=== PATIENT | male | born 1940 | race Caucasian/White ===

== ENCOUNTER 2018-06-28 19:37 | Emergency (ER) | payer MEDICARE, BC ==
--- NOTE | 2018-06-28 19:46 | EDM.PDOC ---
ED HPI GENERAL MEDICAL PROBLEM - General Chief Complaint: General Stated Complaint: rib pain from fall Time Seen by Provider: 06/28/18 19:46 Source of Information: Reports: Patient History Limitations: Reports: No Limitations - History of Present Illness INITIAL COMMENTS - FREE TEXT/NARRATIVE: 78-year-old male presents to the ED after reviewing his right anterior chest wall earlier this afternoon. Patient states he was at the [facility]. As he was coming down the stairs he lost his balance tripped and fell on top of one of the guard rails. The for direct blunt trauma to the right anterior mid and lower chest wall. It is very painful to breathe sharp stabbing pain with every breath. He denies any hemoptysis. He is short of breath as he splinting on this side. He did take 1 hydrocodone tablet that he had left at home which did take the edge off the pain and at rest his pain is 1 out of 10. It's with movement that is worse. Is appreciated increased bruising developing just underneath his right breast. It does hurt in his right upper quadrant of the abdomen as well. Is been no nausea or vomiting. He has not eaten since the time of injury. He was proximal be 1530 hrs. today , [place] standard time. Onset: Today Onset Date: 06/28/18 Onset Time: 15:30 Duration: Hour(s): Location: Reports: Chest (Right anterior mid and lower chest wall), Other ( Abrasions to his right knee and contusion to the medial right distal thigh) Quality: Reports: Ache, Sharp, Stabbing Severity: Moderate (severe sharp stabbing pain with every deep breath. At rest pain is 110 with breathing deep it 7 out of 10) Improves with: Reports: Rest Worsens with: Reports: Other (Deep breathing or coughing), Movement Context: Denies: Activity, Exercise, Lifting, Sick Contact, Trauma, Other Associated Symptoms: Reports: No Other Symptoms, Chest Pain, Loss of Appetite, Shortness of Breath. Denies: Confusion, Cough, cough w sputum, Diaphoresis, Fever/Chills, Headaches, Malaise, Nausea/Vomiting, Rash, Seizure, Syncope Treatments RN SECURITY: Reports: Other (see below) (Took 1 hydrocodone tablet that he had left over from a previous visit and has taken the edge off the pain.) Right Abdomen Pain Score (Numeric/FACES): 7 - Related Data Allergies Allergy/AdvReac Type Severity Reaction Status Date / Time No Known Allergies Allergy Verified 11/15/13 07:52 Home Meds: Home Meds Hydrocodone/Acetaminophen [Hydrocodon-Acetaminophn 10-325] 1 - 2 tab PO Q6H PRN 12/07/13 [History] Metoprolol Succinate [Toprol XL 100mg] 100 mg PO DAILY 12/07/13 [History] Omeprazole 20 mg PO DAILY 12/07/13 [History] Simvastatin 0 mg PO DAILY 12/07/13 [History] hydroCHLOROthiazide [Hydrochlorothiazide] 25 mg PO DAILY 12/07/13 [History] Hydrocodone/Acetaminophen [Hydrocodon-Acetaminophen 5-325] 1 each PO Q4H PRN # 24 tablet 06/28/18 [Rx] Lisinopril 0 mg PO DAILY 06/28/18 [History] Past Medical History HEENT History: Reports: Allergic Rhinitis, Sinusitis, Other (See Below) Cardiovascular History: Reports: High Cholesterol, Hypertension Gastrointestinal History: Reports: GERD Genitourinary History: Reports: BPH Musculoskeletal History: Reports: Back Pain, Chronic, Osteoarthritis - Past Surgical History Male Surgical History: Reports: Prostate Biopsy, Other (See Below) (Patient had total prostatectomy with the da Manuel[employer] robot out in [place] 11 years ago. Since then his PSAs have been normal. Surgery left him dribbling urine a good deal and with erectile dysfunction.) Social & Family History - Living Situation & Occupation Living situation: Reports: Single Occupation: Retired ED ROS GENERAL - Review of Systems Review Of Systems: See Below Constitutional: Reports: Decreased Appetite. Denies: Fever, Chills, Malaise, Weakness, Fatigue, Weight Loss HEENT: Reports: Glasses Respiratory: Reports: Shortness of Breath, Pleuritic Chest Pain. Denies: Wheezing, Cough, Sputum (Right anterior chest at site of recent blunt trauma), Hemoptysis Cardiovascular: Reports: Chest Pain, Blood Pressure Problem (See history of present illness), Dyspnea on Exertion. Denies: Claudication, Edema, Lightheadedness ( chronic hypertension), Orthopnea, Palpitations Endocrine: Reports: No Symptoms GI/Abdominal: Reports: Abdominal Pain (Right upper quadrant abdominal pain along the right costal margin.), Constipation (Occasional) : Reports: Urgency, Other (Dribbles urine intermittently since his prostate was removed.) Musculoskeletal: Reports: Joint Pain (These hips low back and neck at times) Skin: Reports: Other (Bruises easily) Neurological: Reports: No Symptoms, Change in Speech Hematologic/Lymphatic: Reports: No Symptoms Immunologic: Reports: No Symptoms ED EXAM, GENERAL - Physical Exam Exam: See Below Exam Limited By: No Limitations General Appearance: Alert, WD/WN, Mild Distress, Other (Sats are 96% on room air ) Eye Exam: Bilateral Eye: Normal Inspection Respiratory/Chest: No Respiratory Distress, Lungs Clear (Splinting respirations on the right side.), Decreased Breath Sounds, Other ( is ecchymoses and swelling just underneath his right breast. This is across rib 5. Pain is from ribs 5678 and 9 anteriorly and laterally. No posterior lateral pain on palpation of his ribs. No left-sided pain or sternal pain. ). No: Rales, Rhonchi (Sounds are diminished to the right lower lung field due to splinting respirations I believe. Also does have some underlying COPD.), Wheezing Cardiovascular: Regular Rate, Rhythm, No Edema, No Gallop, No Murmur, No Rub. No: Normal Peripheral Pulses Peripheral Pulses: 1+: Posterior Tibial (L), Posterior Tibial (R), Dorsalis Pedis (L), Dorsalis Pedis (R) GI/Abdominal: No Organomegaly (Require acid bowel sounds.), Guarding (Right upper quadrant of the abdomen.), Tender (There is tenderness along the right costal margin right upper quadrant of the abdomen on deep palpation in the distribution of the liver.), Abnormal Bowel Sounds. No: Rigid, Rebound ( Guarding no rigidity did ED or rebound) Back Exam: Normal Inspection, Full Range of Motion. No: CVA Tenderness (L), CVA Tenderness (R) Extremities: Other (Patient suffered an abrasion over his right patella in a contusion some ecchymoses along the medial aspect of the right thigh distally) Neurological: Alert, Oriented, CN II-XII Intact, Normal Cognition Psychiatric: Anxious, Other Skin Exam: Warm, Dry (In moderate pain.), Intact, Normal Color, No Rash Course - Vital Signs Last Recorded V/S: Last Vital Signs Temp 36.0 C 06/28/18 19:45 Pulse 62 06/28/18 19:45 Resp 20 06/28/18 19:45 BP 154/105 H 06/28/18 19:45 Pulse Ox 96 06/28/18 19:45 - Orders/Labs/Meds Orders: Active Orders 24 hr Category Date Time Status Chest Abdomen Pelvis wo Cont [CT] Stat Exams 06/28/18 19:51 Taken - Radiology Interpretation Free Text/Narrative:: 78-year-old male presents to the ED for evaluation of blunt force trauma to his right anterior chest wall that occurred at 1530 hrs. today while he was in October and then at [facility]. states she landed hard on a guard rail when he tripped going down stairs. He did not the wind out of him. Subsequent pain is gradually increased in intensity and he can't take a full deep breath. His splinting respirations on the right side. So O2 sats are maintained at 96% on room air. He is reading very shallowly. He has ecchymoses and swelling just underneath his right breast over ribs 5678 and 9 which are exquisitely tender to palpation. This is anteriorly and laterally. Some tenderness right upper quadrant of the abdomen up underneath the right costal margin and rib 10. Therefore going to have CT done of his chest abdomen and pelvis to make sure there is no injury to his liver. Suspect fracture of ribs mid anterior chest. At present his pain is down to 110. This is after taking hydrocodone tablet at home prior to coming to the ED. - Re-Assessments/Exams Free Text/Narrative Re-Assessment/Exam: 06/28/18 20:33 CT chest abdomen pelvis has been completed without any contrast material. CT chest does not reveal any pulmonary contusion. Does reveal evidence of panlobular emphysematous changes. Cardiac silhouette is within normal limits. There is significant moderate atherosclerosis of the entire aorta particularly at the bifurcation. There is no aneurysmal dilatation. Ribs reveal a undisplaced fracture at ribs 9 and [address] of the abdomen shows liver to be homogeneous without any intraductal dilatation. There is no evidence of injury to the liver or spleen or kidneys. Both kidneys show renal cysts of varying proportion. Kidneys are mildly atrophic. Pancreas is mildly atrophic. Stomach is full of food. No blood in the pelvis. Departure - Departure Time of Disposition: 20:35 Disposition: Home, Self-Care 01 Condition: Fair Clinical Impression: Anterior chest wall pain, Abrasion, right lower leg, initial encounter Fracture, ribs Qualifiers: Encounter type: initial encounter Rib fracture type: multiple ribs Fracture type: closed Laterality: right Qualified Code(s): S22.41XA - Multiple fractures of ribs, right side, initial encounter for closed fracture - Discharge Information *PRESCRIPTION DRUG MONITORING PROGRAM REVIEWED*: Not Applicable *COPY OF PRESCRIPTION DRUG MONITORING REPORT IN PATIENT ZION: Not Applicable Prescriptions: Hydrocodone/Acetaminophen [Hydrocodon-Acetaminophen 5-325] 1 each PO Q4H PRN # 24 tablet PRN Reason: Fractured ribs Referrals: Benjy Krishnamurthy MD [Primary Care Provider] - Forms: ED Department Discharge Additional Instructions: Evaluation the emergency room today in regards to fall [place] [employer] today and mandate an. Landed on the guardrail and suffered blunt force trauma to your right anterior chest wall. There is bruising and swelling coming up over ribs 56 and 7. X-rays or CT done of the chest abdomen and pelvis revealed fractures which are undisplaced in ribs 8 and 9. No underlying injury to the lung identified. CT also revealed no injuries to the liver which lives up underneath those ribs. The remainder of the CT of the abdomen and pelvis was essentially normal other than missing prostate gland. You do have a fat filled umbilical hernia which of course you know about. Treatment is Gilbert wrap on for the next 4 or 5 days to provide comfort. May take off to shower. May take hydrocodone tablet 5/325 one or 2 every 4-6 hours as needed for relief of rib pain which will be particularly bad over the next 3-4 days and then start to ease up. That Motrin intermittently may also help relieve the pain. Follow-up with personal care physician if you develop any troubles breathing or any fever chills within the next 10-14 days. SPECT rib pain to slowly improve over next 3- 4 weeks. Activity as tolerated. Abrasions to the right knee need to be daily cleansed and would suggest a small amount of antibiotic topically placed on them until they heal such as bacitracin or Polysporin. Continue all other medications as before. - My Orders Last 24 Hours: My Active Orders 06/28/18 19:51 Chest Abdomen Pelvis wo Cont [CT] Stat - Assessment/Plan Last 24 Hours: My Active Orders 06/28/18 19:51 Chest Abdomen Pelvis wo Cont [CT] Stat
[2018-06-28 19:47] VITALS: BP 154/105
--- NOTE | 2018-06-28 20:54 | CT ---
CT chest Technique: Multiple axial sections through the chest were obtained. Intravenous contrast was not utilized. Comparison: Prior chest CT of 09/08/15. Findings: Atherosclerotic calcification is are seen within the aorta and within the branch vessels. Ascending aorta measures 4.3 cm which is stable. Prominent coronary artery calcification is noted also stable. Several mediastinal lymph nodes are seen which are also felt to be stable and incidental. No axillary adenopathy is seen. No pericardial thickening is seen. Several small subpleural blebs seen within the lung apices. Small nodules are noted within the chest which are stable. No pulmonary contusion is seen. No pleural effusions or pneumothorax is seen. Vertebral body heights are maintained within the thoracic spine. Sternum appears intact on the reconstructed sagittal images. No acute rib fracture is seen. Old fracture is noted within the left ninth rib posteriorly which appears to be healed. Impression: 1. Stable findings which are incidental. Nothing acute is appreciated. Diagnostic code #2 CT abdomen and pelvis Technique: Multiple axial sections were obtained from above the dome of the diaphragm inferiorly through the pubic symphysis. Intravenous and oral contrast not utilized. Comparison: Prior MRI abdomen study of 04/29/[address] upper abdomen exam of 11/15/13. Findings: Numerous cysts are seen within both kidneys. Small hyperdense area is seen within the right kidney measuring 1.1 cm in size and appears to represent small hemorrhagic cyst which is seen on previous exam and appears stable in size. Noncontrast appearance of the liver shows no focal abnormality. Spleen appears within normal limits. Adrenal glands show no nodule. Pancreas is within normal limits. Gallbladder shows no calcified gallstones. Aorta shows atherosclerotic calcification without aneurysm. Atherosclerotic calcification continues into the iliac vessels. No retroperitoneal adenopathy or mesenteric abnormalities are seen. Fat-containing umbilical hernia is seen slightly enlarged from previous study. Diverticuli are seen within the sigmoid colon and descending colon without inflammatory change of diverticulitis. No pelvic mass or adenopathy is seen. No free fluid or inflammatory change is seen within the abdomen or within the pelvis. Appendix not definitely visualized. Bone window settings were reviewed which shows no acute abnormality within the pelvic bones. Vacuum disc phenomena and disc space narrowing noted at L3-L4, L4-L5 and L5-S1. 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 Previous laminectomy noted at L4-L5. Impression: 1. Slightly enlarging umbilical hernia. 2. Numerous cysts within the kidneys as described above which are felt to be incidental. 3. Nothing acute is appreciated on noncontrast CT study of the abdomen and pelvis. 4. Other incidental findings. Diagnostic code #2
== END 2018-06-28 21:06 | disposition home or self-care (01) ==
LOC: JD.ED 19:37
DX: S22.41XA Multiple fractures of ribs, right side, initial encounter for closed fracture (principal); S70.11XA Contusion of right thigh, initial encounter; S80.211A Abrasion, right knee, initial encounter; I10 Essential (primary) hypertension; K21.9 Gastro-esophageal reflux disease without esophagitis; M19.90 Unspecified osteoarthritis, unspecified site; Z79.899 Other long term (current) drug therapy; W10.8XXA Fall (on) (from) other stairs and steps, initial encounter
CPT/HCPCS: 71250; 71250-26; 74176; 74176-26; 99283-25

== ENCOUNTER 2018-09-05 07:30 | Day surgery (SDC) | payer MEDICARE, BC ==
[~2018-09-05 07:30] MED LIST: Cefuroxime 10 MG/ML SYRINGE EYERT SCH; Lidocaine 1% PF 2 ML SDV INJECT SCH; Pilocarpine 4% Ophth Soln 15 ML Bot EYERT SCH
--- NOTE | 2018-09-05 07:55 | PCM.PREANE ---
Preanesthetic Assessment - Anesthesia/Transfusion/Family Hx Anesthesia History: Prior Anesthesia Without Reaction Family History of Anesthesia Reaction: No Transfusion History: No Prior Transfusion(s) - Review of Systems General: No Symptoms Pulmonary: No Symptoms Cardiovascular: No Symptoms Gastrointestinal: No Symptoms Neurological: No Symptoms Other: Reports: None (pt checked BS on sun 151, checks 2-3 times per week [address] this past week) - Physical Assessment NPO Status Date: 09/04/18 NPO Status Time: 21:00 Pulse: 44 O2 Sat by Pulse Oximetry: 94 Respiratory Rate: 16 Blood Pressure: 153/91 Temperature: 97.6 C ASA Class: 2 Mental Status: Alert & Oriented x3 Airway Class: Mallampati = 2 Dentition: Reports: Dentures (upper), Partial (bottom), Implants (bottom) Thyro-Mental Finger Breadths: 2 Mouth Opening Finger Breadths: 3 ROM/Head Extension: Full Lungs: Clear to Auscultation, Normal Respiratory Effort, Decreased Breath Sounds (bilateral) Cardiovascular: Irregular Rhythm - Allergies Allergies/Adverse Reactions: Allergies Allergy/AdvReac Type Severity Reaction Status Date / Time No Known Allergies Allergy Verified 11/15/13 07:52 - Anesthesia Plan Beta Dora: Metoprolol Med Last Dose Date: 09/04/18 Med Last Dose Time: 08:00 - Acknowledgements Anesthesia Type Planned: MAC Pt an Appropriate Candidate for the Planned Anesthesia: Yes Alternatives and Risks of Anesthesia Discussed w Pt/Guardian: Yes Pt/Guardian Understands and Agrees with Anesthesia Plan: Yes PreAnesthesia Questionnaire HEENT History: Reports: Allergic Rhinitis, Cataract, Sinusitis, Other (See Below ) Cardiovascular History: Reports: High Cholesterol, Hypertension Respiratory History: Reports: SOB (SOB with exertion) Gastrointestinal History: Reports: GERD Genitourinary History: Reports: BPH Musculoskeletal History: Reports: Back Pain, Chronic, Osteoarthritis Neurological History: Reports: None Endocrine/Metabolic History: Reports: Diabetes, Type II (pt BS on sun 151) Oncologic (Cancer) History: Reports: Prostate - Past Surgical History HEENT Surgical History: Reports: Tonsillectomy GI Surgical History: Reports: Appendectomy Male Surgical History: Reports: Prostate Biopsy, Other (See Below) (Patient had total prostatectomy with the [employer] robot out in [place] 11 years ago. Since then his PSAs have been normal. Surgery left him dribbling urine a good deal and with erectile dysfunction.) Neurological Surgical History: Reports: Laminectomy - SUBSTANCE USE Smoking Status *Q: Current Every Day Smoker - HOME MEDS Home Medications: Home Meds Allopurinol [Zyloprim] 100 mg PO DAILY 09/04/18 [History] Aspirin [Children's Aspirin] 81 mg PO DAILY 09/04/18 [History] Docusate Sodium [Colace] 100 mg PO DAILY 09/04/18 [History] Empagliflozin/Metformin HCl [Synjardy 12.5-500 mg Tablet] 1 tab PO BID 09/04/18 [History] Glimepiride [Amaryl] 2 mg PO DAILY 09/04/18 [History] Hydrocodone/Acetaminophen [Hydrocodon-Acetaminophen 5-325] 1 tab PO Q6H PRN [History] Irbesartan 300 mg PO DAILY 09/04/18 [History] Metoprolol Succinate 100 mg PO DAILY 09/04/18 [History] Omeprazole 20 mg PO DAILY 09/04/18 [History] Pioglitazone HCl 22.5 mg PO DAILY 09/04/18 [History] Rosuvastatin Calcium 20 mg PO DAILY 09/04/18 [History] Sennosides [Senna] 8.6 mg PO DAILY PRN 09/04/18 [History] - CURRENT (IN HOUSE) MEDS Current Meds: Current Medications Brimonidine Tartrate (Alphagan 0.2% Ophth Soln) 0 ml EYERT ASDIRECTED KARLEY Stop: 09/05/18 18:00 Cefuroxime Sodium (Zinacef) 0 mg EYERT ASDIRECTED KARLEY Stop: 09/05/18 18:00 Lidocaine HCl (Xylocaine-Mpf 1%) 0 ml INJECT ASDIRECTED KARLEY Stop: 09/05/18 18:00 Phenylephrine HCl (Andrade-Synephrine 2.5% Ophth Soln) 0 ml EYERT ASDIRECTED KARLEY Stop: 09/05/18 18:00 Pilocarpine HCl (Pilocar 4% Ophth Soln) 0 ml EYERT ASDIRECTED KARLEY Stop: 09/05/18 18:00 Polymyxin/Trimethoprim Sulfate (Polytrim Ophth Soln) 0 ml EYERT ASDIRECTED KARLEY Stop: 09/05/18 18:00 Tetracaine HCl (Tetracaine 0.5% Steri-Unit Celena) 0 ml EYERT ASDIRECTED KARLEY Stop: 09/05/18 18:00 Tropicamide [facility]) 0 ml EYERT ASDIRECTED KARLEY Stop: 09/05/18 18:00
[2018-09-05] MEDS: Polymyxin B/Trimethoprim 10 ML Bottle EYERT SCH ×3 (08:08→09:26)
[2018-09-05] MEDS: Brimonidine 0.2% Ophth Soln 5 ML Bottle EYERT SCH ×2 (08:12→08:45)
[2018-09-05] MEDS: Phenylephrine 2.5% Ophth Soln 2 ML Bot EYERT SCH ×5 (08:16→09:00)
[2018-09-05] MEDS: Tropicamide 1% Ophth Soln 15 ML Bottle EYERT SCH ×5 (08:21→09:26)
[2018-09-05] MEDS: Tetracaine HCl/PF 0.5% 4 ML Bottle EYERT SCH ×2 (08:55→09:16)
--- NOTE | 2018-09-05 09:27 | PCM48HPAN ---
Post Anesthesia Note - EVALUATION WITHIN 48HRS OF ANESTHETIC Vital Signs in Normal Range: Yes Patient Participated in Evaluation: Yes Respiratory Function Stable: Yes Airway Patent: Yes Cardiovascular Function Stable: Yes Hydration Status Stable: Yes Pain Control Satisfactory: Yes Nausea and Vomiting Control Satisfactory: Yes Mental Status Recovered: Yes Pulse Rate: 44 Resp Rate: 16 Temperature: 97.6 C Blood Pressure: 153/91
[2018-09-05 09:47] VITALS: BP 176/89
== END 2018-09-05 09:40 | disposition home or self-care (01) ==
LOC: JD.SDS 07:30
PROVIDERS: ATTEND Ophthalmology
DX: E11.36 Type 2 diabetes mellitus with diabetic cataract (principal); H25.813 Combined forms of age-related cataract, bilateral; H21.81 Floppy iris syndrome; H21.41 Pupillary membranes, right eye; I10 Essential (primary) hypertension; F17.200 Nicotine dependence, unspecified, uncomplicated; M10.9 Gout, unspecified; H16.223 Keratoconjunctivitis sicca, not specified as Sjogren's, bilateral; H16.103 Unspecified superficial keratitis, bilateral; H02.834 Dermatochalasis of left upper eyelid; H02.831 Dermatochalasis of right upper eyelid; Z79.84 Long term (current) use of oral hypoglycemic drugs; Z79.82 Long term (current) use of aspirin; Z79.899 Other long term (current) drug therapy
CPT/HCPCS: 66982; A9270; J0697; J2001; C1780

== ENCOUNTER 2018-10-03 07:04 | Day surgery (SDC) | payer MEDICARE, BC ==
[2018-10-03] MEDS: Polymyxin B/Trimethoprim 10 ML Bottle EYELF SCH ×4 (07:15→09:06)
[2018-10-03] MEDS: Brimonidine 0.2% Ophth Soln 5 ML Bottle EYELF SCH ×4 (07:20→09:06)
[2018-10-03] MEDS: Phenylephrine 2.5% Ophth Soln 2 ML Bot EYELF SCH ×6 (07:25→08:42)
[2018-10-03] MEDS: Tropicamide 1% Ophth Soln 15 ML Bottle EYELF SCH ×4 (07:30→08:10)
--- NOTE | 2018-10-03 07:47 | PCM.PREANE ---
Preanesthetic Assessment - Procedure Proposed Procedure: left eye extraction cataract with implant - Anesthesia/Transfusion/Family Hx Anesthesia History: Prior Anesthesia Without Reaction Family History of Anesthesia Reaction: No Transfusion History: No Prior Transfusion(s) - Review of Systems General: No Symptoms Pulmonary: Wheezing (inhaler use x2 day, administered to self this AM ) Cardiovascular: No Symptoms, Dyspnea on Exertion Gastrointestinal: No Symptoms Neurological: No Symptoms, Other (gout ) Other: Reports: None, Diabetes - Physical Assessment NPO Status Date: 10/02/18 NPO Status Time: 18:00 O2 Sat by Pulse Oximetry: 93 Respiratory Rate: 20 Vital Signs: Last Vital Signs Temp 36.2 C 10/03/18 07:15 Pulse 86 10/03/18 07:15 Resp 20 10/03/18 07:15 BP 146/84 H 10/03/18 07:15 Pulse Ox 93 L 10/03/18 07:15 Height: 1.78 m Weight: 95.254 kg ASA Class: 2 Mental Status: Alert & Oriented x3 Airway Class: Mallampati = 2 Dentition: Reports: Missing Tooth/Teeth (implant missing left lower ) Thyro-Mental Finger Breadths: 3 Mouth Opening Finger Breadths: 4 ROM/Head Extension: Full Lungs: Clear to Auscultation, Normal Respiratory Effort Cardiovascular: Regular Rate, Regular Rhythm - Lab Values: Laboratory Last Values POC Glucose 153 mg/dL (83-110) H 10/03/18 07:19 - Allergies Allergies/Adverse Reactions: Allergies Allergy/AdvReac Type Severity Reaction Status Date / Time No Known Allergies Allergy Verified 10/02/18 14:50 - Blood Blood Available: No - Anesthesia Plan Beta Dora: Metoprolol Med Last Dose Date: 10/03/18 - Acknowledgements Anesthesia Type Planned: MAC Pt an Appropriate Candidate for the Planned Anesthesia: Yes Alternatives and Risks of Anesthesia Discussed w Pt/Guardian: Yes Pt/Guardian Understands and Agrees with Anesthesia Plan: Yes PreAnesthesia Questionnaire HEENT History: Reports: Allergic Rhinitis, Cataract, Sinusitis, Other (See Below ) Cardiovascular History: Reports: High Cholesterol, Hypertension Respiratory History: Reports: SOB (SOB with exertion) Gastrointestinal History: Reports: GERD Genitourinary History: Reports: BPH Musculoskeletal History: Reports: Back Pain, Chronic, Osteoarthritis Neurological History: Reports: None Endocrine/Metabolic History: Reports: Diabetes, Type II (pt BS on sun 151) Oncologic (Cancer) History: Reports: Prostate - Past Surgical History HEENT Surgical History: Reports: Tonsillectomy GI Surgical History: Reports: Appendectomy Male Surgical History: Reports: Prostate Biopsy, Other (See Below) (Patient had total prostatectomy with the [employer] robot out in [place] 11 years ago. Since then his PSAs have been normal. Surgery left him dribbling urine a good deal and with erectile dysfunction.) Neurological Surgical History: Reports: Laminectomy - HOME MEDS Home Medications: Home Meds Allopurinol [Zyloprim] 100 mg PO DAILY 09/04/18 [History] Aspirin [Children's Aspirin] 81 mg PO DAILY 09/04/18 [History] Docusate Sodium [Colace] 100 mg PO DAILY 09/04/18 [History] Empagliflozin/Metformin HCl [Synjardy 12.5-500 mg Tablet] 1 tab PO BID 09/04/18 [History] Glimepiride [Amaryl] 2 mg PO DAILY 09/04/18 [History] Hydrocodone/Acetaminophen [Hydrocodon-Acetaminophen 5-325] 1 tab PO Q6H PRN [History] Irbesartan 300 mg PO DAILY 09/04/18 [History] Metoprolol Succinate 100 mg PO DAILY 09/04/18 [History] Omeprazole 20 mg PO DAILY 09/04/18 [History] Pioglitazone HCl 22.5 mg PO DAILY 09/04/18 [History] Rosuvastatin Calcium 20 mg PO DAILY 09/04/18 [History] Sennosides [Senna] 8.6 mg PO DAILY PRN 09/04/18 [History] - CURRENT (IN HOUSE) MEDS Current Meds: Current Medications Brimonidine Tartrate (Alphagan 0.2% [facility]) 0 ml EYELF ASDIRECTED KARLEY Stop: 10/03/18 18:00 Last Admin: 10/03/18 07:20 Dose: 1 drop Cefuroxime Sodium (Zinacef) 0 mg EYELF ASDIRECTED KARLEY Stop: 10/03/18 18:00 Lidocaine HCl (Xylocaine-Mpf 1%) 0 ml INJECT ASDIRECTED KARLEY Stop: 10/03/18 18:00 Metoprolol Succinate (Toprol Xl) 100 mg PO ONETIME ONE Stop: 10/03/18 08:01 Phenylephrine HCl (Adnrade-Synephrine 2.5% Ophth Soln) 0 ml EYELF ASDIRECTED KARLEY Stop: 10/03/18 18:00 Last Admin: 10/03/18 07:35 Dose: 1 drop Pilocarpine HCl (Pilocar 4% Ophth Soln) 0 ml EYELF ASDIRECTED KARLEY Stop: 10/03/18 18:00 Polymyxin/Trimethoprim Sulfate (Polytrim Ophth Soln) 0 ml EYELF ASDIRECTED KARLEY Stop: 10/03/18 18:00 Last Admin: 10/03/18 07:15 Dose: 1 drop Tetracaine HCl (Tetracaine 0.5% Steri-Unit Celena) 0 ml EYELF ASDIRECTED KARLEY Stop: 10/03/18 18:00 Tropicamide (Mydriacyl 1% Ophth Soln) 0 ml EYELF ASDIRECTED KARLEY Stop: 10/03/18 18:00 Last Admin: 10/03/18 07:40 Dose: 1 drop
[2018-10-03] MEDS: Lidocaine 1% PF 2 ML SDV INJECT SCH ×2 (07:53→08:48)
[2018-10-03] MEDS: Tetracaine HCl/PF 0.5% 4 ML Bottle EYELF SCH ×5 (07:53→09:04)
[2018-10-03] MEDS: Cefuroxime 10 MG/ML SYRINGE EYELF SCH ×2 (07:53→09:05)
[2018-10-03] MEDS: Pilocarpine 4% Ophth Soln 15 ML Bot EYELF SCH ×2 (07:57→09:06)
[2018-10-03] MEDS ORDERED: Metoprolol Succinate 50 MG Tab.ER PO ONE (08:00)
--- NOTE | 2018-10-03 09:03 | PCM48HPAN ---
Post Anesthesia Note - EVALUATION WITHIN 48HRS OF ANESTHETIC Vital Signs in Normal Range: Yes Patient Participated in Evaluation: Yes Respiratory Function Stable: Yes Airway Patent: Yes Cardiovascular Function Stable: Yes Hydration Status Stable: Yes Pain Control Satisfactory: Yes Nausea and Vomiting Control Satisfactory: Yes Mental Status Recovered: Yes Pulse Rate: 86 Resp Rate: 20 Blood Pressure: 146/84
[2018-10-03 09:24] VITALS: BP 180/91
== END 2018-10-03 09:27 | disposition home or self-care (01) ==
LOC: JD.SDS 07:04
PROVIDERS: ATTEND Ophthalmology
DX: H25.812 Combined forms of age-related cataract, left eye (principal); H21.42 Pupillary membranes, left eye; H21.81 Floppy iris syndrome; H02.835 Dermatochalasis of left lower eyelid; H02.834 Dermatochalasis of left upper eyelid; H16.9 Unspecified keratitis; I10 Essential (primary) hypertension; E11.9 Type 2 diabetes mellitus without complications; E78.00 Pure hypercholesterolemia, unspecified; K21.9 Gastro-esophageal reflux disease without esophagitis; F17.210 Nicotine dependence, cigarettes, uncomplicated; Z96.1 Presence of intraocular lens; Z79.82 Long term (current) use of aspirin; Z79.899 Other long term (current) drug therapy; Z79.84 Long term (current) use of oral hypoglycemic drugs; Z79.891 Long term (current) use of opiate analgesic
CPT/HCPCS: 66982; 82962; 93005; A9270; C1780; J0697; J2001

== ENCOUNTER 2021-05-24 09:56 | Emergency (ER) | payer MEDICARE, BC ==
[2021-05-24 10:17] VITALS: PULSE 68
--- NOTE | 2021-05-24 10:27 | EDM.PDOC ---
ED HPI GENERAL MEDICAL PROBLEM - General Chief Complaint: Cardiovascular Problem Stated Complaint: HIGH BLOOD PRESSURE Time Seen by Provider: 05/24/21 10:21 Source of Information: Reports: Patient History Limitations: Reports: No Limitations - History of Present Illness INITIAL COMMENTS - FREE TEXT/NARRATIVE: 81-year-old male presents to the ED for evaluation of hypertension. He states for several weeks now his systolic blood pressures been very high at home and also recorded out to be elevated by Dr. Quijano over the last week. Today he states his blood pressure was 217/179 which is incorrect. The diastolic pressure would never be this high. Blood pressure here was 197/102. Second recording was 190/85. He has a slight posterior occipital headache. No nausea or vomiting. No change in visual acuity and no problems with his balance. No chest pain or pressure. He states he had a recent ECG, echocardiogram of his heart and apparently a CT presumably of the abdomen to look at his kidneys. The results are not yet available to the patient. No changes were made to his blood pressure medications of which she has been taking for many years. He has had both COVID-19 vaccinations and is due for his booster shot in the next week. Onset: Unknown/Unsure (Pressure has been elevated systolically for several weeks.) Onset Date: 04/20/21 (Appreciates elevated systolic blood pressure for the last month or more.) Duration: Week(s): Location: Reports: Other (Elevated systolic blood pressure.) Quality: Reports: Other (Elevated systolic blood pressure which she is tolerating very well.) Severity: Moderate Improves with: Reports: None Worsens with: Reports: None Context: Reports: Other (Patient has chronic hypertension which appears to be getting worse with more systolic hypertension as he ages). Denies: Activity, Exercise, Lifting, Sick Contact, Trauma Associated Symptoms: Reports: Shortness of Breath. Denies: Confusion, Chest Pain, Cough, cough w sputum, Diaphoresis, Fever/Chills, Loss of Appetite, Nausea/Vomiting, Rash, Seizure, Syncope (Sometimes on exertion.), Other Treatments [employer]: Reports: Other (see below) (Only medications as prescribed. No NSAID use.) - Related Data Allergies Allergy/AdvReac Type Severity Reaction Status Date / Time No Known Allergies Allergy Verified 10/02/18 14:50 Home Meds: Home Meds Aspirin [Children's Aspirin] 81 mg PO DAILY 09/04/18 [History] Docusate Sodium [Colace] 100 mg PO DAILY 09/04/18 [History] Empagliflozin/Metformin HCl [Synjardy 12.5-500 mg Tablet] 1 tab PO BID 09/04/18 [History] Glimepiride [Amaryl] 2 mg PO DAILY 09/04/18 [History] Hydrocodone/Acetaminophen [Hydrocodon-Acetaminophen 5-325] 1 tab PO Q6H PRN 09/04/18 [History] Irbesartan 300 mg PO DAILY 09/04/18 [History] Metoprolol Succinate 100 mg PO DAILY 09/04/18 [History] Omeprazole 20 mg PO DAILY 09/04/18 [History] Pioglitazone HCl 22.5 mg PO DAILY 09/04/18 [History] Rosuvastatin Calcium 20 mg PO DAILY 09/04/18 [History] Sennosides [Senna] 8.6 mg PO DAILY PRN 09/04/18 [History] allopurinoL [Zyloprim] 100 mg PO DAILY 09/04/18 [History] amLODIPine Besylate [Norvasc] 10 mg PO BEDTIME #30 tablet 05/24/21 [Rx] Past Medical History HEENT History: Reports: Allergic Rhinitis, Cataract, Sinusitis, Other (See Below) Cardiovascular History: Reports: High Cholesterol, Hypertension Respiratory History: Reports: SOB (SOB with exertion) Gastrointestinal History: Reports: GERD Genitourinary History: Reports: BPH Musculoskeletal History: Reports: Back Pain, Chronic, Osteoarthritis Neurological History: Reports: None Endocrine/Metabolic History: Reports: Diabetes, Type II (pt BS on sun 151) Oncologic (Cancer) History: Reports: Prostate - Past Surgical History HEENT Surgical History: Reports: Tonsillectomy GI Surgical History: Reports: Appendectomy Male Surgical History: Reports: Prostate Biopsy, Other (See Below) (Patient had total prostatectomy with the [employer] robot out in [place] 11 years ago. Since then his PSAs have been normal. Surgery left him dribbling urine a good deal and with erectile dysfunction.) Neurological Surgical History: Reports: Laminectomy Social & Family History - Living Situation & Occupation Living situation: Reports: Single Occupation: Retired ED ROS GENERAL - Review of Systems Review Of Systems: See Below Constitutional: Denies: Fever, Chills, Malaise, Weakness, Fatigue, Night Sweats, Decreased Appetite, Weight Loss, Weight Gain, Other HEENT: Reports: Glasses Respiratory: Reports: Shortness of Breath (For reading only). Denies: Wheezing, Pleuritic Chest Pain ( vaginal dyspnea.), Cough, Sputum, Hemoptysis Cardiovascular: Reports: Blood Pressure Problem. Denies: Chest Pain, Claudication, Dyspnea on Exertion, Lightheadedness, Orthopnea, Palpitations, Syncope, Other Endocrine: Reports: High Glucose (Patient has type 2 diabetes.). Denies: Low Glucose GI/Abdominal: Reports: Other (History of GERD but very well controlled with proton pump inhibitor which has been on for many years.). Denies: Abdominal Pain : Reports: Frequency, Other (Nocturia x2-3. History of BPH.) Musculoskeletal: Reports: Neck Pain, Shoulder Pain, Joint Pain (Knees hips and low back at times) Skin: Reports: No Symptoms Neurological: Reports: Headache (Some occipital pressure headache the last se veral weeks.). Denies: Confusion, Dizziness, Numbness Psychiatric: Reports: No Symptoms Hematologic/Lymphatic: Reports: No Symptoms Immunologic: Reports: No Symptoms ED EXAM, GENERAL - Physical Exam Exam: See Below Exam Limited By: No Limitations General Appearance: Alert, WD/WN, No Apparent Distress, Other (Temperature is 36.8 degrees. Heart rate 68 and sinus respiratory is 18 with O2 sats of 97% room air. BP initially 197 102 it did come down to 190/85.) Eye Exam: Bilateral Eye: A-V [place] (Moderate bilaterally.), Normal Inspection (No blepharal pallor or scleral icterus), PERRL Throat/Mouth: Normal Inspection, Normal Lips, Normal Voice Head: Atraumatic, Normocephalic Neck: Normal Inspection, Full Range of Motion, Limited Range of Motion (Patient is near full range of motion but tenderness and pain at full lateral rotation and flexion), Tender Lateral (Mild bilaterally. He states no worse than normal.). No: Carotid Bruit, Lymphadenopathy (L), Lymphadenopathy (R) Respiratory/Chest: No Respiratory Distress, Lungs Clear, No Accessory Muscle Use, Chest Non-Tender, Decreased Breath Sounds (Breath sounds are very mildly decreased to both posterior lung olguin.) Cardiovascular: Regular Rate, Rhythm, No Edema, No Gallop, No JVD, No Rub. No: Normal Peripheral Pulses Peripheral Pulses: 1+: Posterior Tibial (L), Posterior Tibial (R), Dorsalis Pedis (L), Dorsalis Pedis (R), 2+: Carotid (L), Carotid (R) GI/Abdominal: Normal Bowel Sounds, Soft, Non-Tender, No Organomegaly, No Distention Back Exam: Normal Inspection. No: Full Range of Motion, CVA Tenderness (L), CVA Tenderness (R) Extremities: Normal Inspection, Normal Range of Motion, Non-Tender, No Pedal Edema, Other (Does show evidence of bilateral osteoarthritic changes knees and very limited internal/external rotation of both hips combined with arthritic change.) Neurological: Alert, Oriented, CN II-XII Intact, Normal Cognition Psychiatric: Normal Affect, Normal Mood Skin Exam: Warm, Dry, Intact, Normal Color, No Rash Course - Vital Signs Last Recorded V/S: Last Vital Signs Temp 36.8 C 05/24/21 10:13 Pulse 68 05/24/21 10:13 Resp 18 05/24/21 10:13 BP 190/85 H 05/24/21 10:41 Pulse Ox 97 05/24/21 10:13 - Orders/Labs/Meds Meds: Medications Discontinued Medications Generic Name Dose Route Start Last Admin Trade Name Freq PRN Reason Stop Dose Admin Amlodipine Besylate 10 mg 05/24/21 10:29 05/24/21 10:41 Amlodipine 10 Mg Tab PO 05/24/21 10:30 10 mg ONETIME ONE Administration Hydralazine HCl 10 mg 05/24/21 10:28 05/24/21 10:42 Hydralazine 20 Mg/Ml Sdv IVPUSH 05/24/21 10:29 10 mg ONETIME ONE Administration Sodium Chloride 10 ml 05/24/21 10:28 05/24/21 10:41 Sodium Chloride 0.9% 10 Ml Syringe FLUSH 10 ml ASDIRECTED PRN Administration Keep Vein Open - Radiology Interpretation Free Text/Narrative:: 81-year-old male presents to the ED for evaluation of elevated blood pressure. He states he has had elevated systolic blood pressures for the last month and a half or so. He did see Dr. Quijano last week and had ECG, echocardiogram and a CT exam performed. He also had labs performed. He is not aware of the results. He states this morning his blood pressure was 217/179 which would be incorrect as the pulse pressure is too high and the diastolic pressure is too high. However here his blood pressure was not 197 /102 and 190/85 --15 minutes later. Plan will proceed with hydralazine 10 mg IV and oral amlodipine 10 mg by mouth. - Re-Assessments/Exams Free Text/Narrative Re-Assessment/Exam: 05/24/21 11:06 blood pressure has come down to 153/75 with heart rate in this 70s. O2 sats 96% room air Departure - Departure Time of Disposition: 12:31 Disposition: Home, Self-Care 01 Reason for Transfer *Q: Other Condition: Fair Clinical Impression: Systolic essential hypertension Prescriptions: amLODIPine Besylate [Norvasc] 10 mg PO BEDTIME #30 tablet Instructions: Hypertension, Adult, [id number] Referrals: Benjy Krishnamurthy MD [Primary Care Provider] - Forms: ED Department Discharge Additional Instructions: Evaluation in the emergency room today in regards to an elevation of your blood pressure on the top number which we call systolic hypertension. Blood pressure in the ED was 197/85. You were treated with intravenous medication hydralazine 10 mg which brought it down to as low as 153/75. He also was started on amlodipine 10 mg by mouth. You will need to take this new blood pressure medication every day at bedtime starting tonight. Suggest follow-up with Dr. Quijano with us within the next 10 days for blood pressure review.
[2021-05-24] MEDS ORDERED: hydrALAZINE 20 MG/ML SDV IVPUSH ONE (10:28)
[2021-05-24] MEDS ORDERED: Sodium Chloride 0.9% 10 ML Syringe FLUSH PRN (10:28)
[2021-05-24] MEDS ORDERED: amLODIPine 10 MG Tab PO ONE (10:29)
[2021-05-24 10:42] VITALS: BP 190/85
== END 2021-05-24 11:50 | disposition home or self-care (01) ==
LOC: JD.ED 09:56
DX: I10 Essential (primary) hypertension (principal); E78.00 Pure hypercholesterolemia, unspecified; E11.9 Type 2 diabetes mellitus without complications; M19.90 Unspecified osteoarthritis, unspecified site; N40.0 Benign prostatic hyperplasia without lower urinary tract symptoms; K21.9 Gastro-esophageal reflux disease without esophagitis; Z79.82 Long term (current) use of aspirin; Z79.899 Other long term (current) drug therapy
CPT/HCPCS: 96374; 99283; A9270; J0360

== ENCOUNTER 2024-07-15 10:22 | Inpatient (IN) | payer MEDICARE ==
[2024-07-15 11:05] LABS: BASOPHILS PERCENT AUTO 0.1 % (0.0-1.0); HEMATOCRIT 47.8 % (42.0-52.0); HEMOGLOBIN 16.6 gm/dl (14.0-18.0); IMMATURE GRAN ABSOLUTE AUTO 0.03 K/mm3 (0.00-0.05); IMMATURE GRAN PERCENT AUTO 0.3 % (0.0-0.4); LYMPHOCYTES ABSOLUTE AUTO 1.1 K/mm3 (1.0-4.8); LYMPHOCYTES PERCENT AUTO 10.2 % (24.0-44.0); MEAN CORPUSCULAR HEMOGLOBIN 31.7 pg (28.0-32.0); MEAN CORPUSCULAR HGB CONC 34.7 g/dl (32.0-36.0); MEAN CORPUSCULAR VOLUME 91.2 fl (83.0-99.0); MEAN PLATELET VOLUME 10.2 fl (9.4-12.4); MONOCYTES ABSOLUTE AUTO 0.7 K/mm3 (0.0-0.8); MONOCYTES PERCENT AUTO 6.3 % (0.0-8.0); NEUTROPHILS PERCENT AUTO 83.1 % (41.0-71.0); PLATELET COUNT,PLT 165 K/mm3 (150-400); RED BLOOD CELL COUNT 5.24 M/mm3 (4.52-5.90); WHITE BLOOD CELL COUNT,WBC 10.83 K/mm3 (3.9-11.3)
[2024-07-15] MEDS: Sodium Chloride 0.9% 1,000 ML IV ONE (11:25)
[2024-07-15 11:26] LABS: INR 1.03; PROTHROMBIN TIME 10.9 SECONDS (9.7-12.0)
[2024-07-15 11:27] LABS: PTT,PARTIAL THROMBOPLSTIN TIME 31.5 SECONDS (21.7-31.4)
[2024-07-15 11:35] LABS: A/G RATIO 0.7 (1-2); ALBUMIN 3.2 g/dl (3.4-5.0); ANION GAP 17.7 (5-15); BILIRUBIN TOTAL 1.2 mg/dL (0.2-1.0); BUN/CREATININE RATIO 20.4 (14-18); CALCIUM 9.1 mg/dL (8.5-10.1); CREATININE 2.7 mg/dL (0.7-1.3); EST CRCL DRUG DOSING (CG) 20.41 mL/min; POTASSIUM,K 3.7 mEq/L (3.5-5.1); PROTEIN TOTAL,TP 7.9 g/dl (6.4-8.2)
[2024-07-15 11:43] LABS: LACTIC ACID 2.4 mmol/L (0.4-2.0)
[2024-07-15] MEDS ORDERED: Polyethylene Glycol 3350 Powder 17 GM Packet PO PRN (13:20)
[2024-07-15] MEDS: cefTRIAXone 2 GM Vial IVPUSH ONE (13:38)
[2024-07-15] MEDS: methylPREDNISolone Sodium Succinate 125 MG/2 ML SDV IVPUSH ONE (13:39)
[2024-07-15] MEDS ORDERED: Heparin Sodium 5,000 Units/ML Vial SUBCUT SCH (13:45)
[2024-07-15 14:37] LABS: APPEARANCE,URINE CLEAR (Clear); BILIRUBIN,URINE NEGATIVE (Negative); COLOR,URINE YELLOW (Yellow); GLUCOSE,URINE 2+ (Negative); KETONES,URINE 1+ (Negative); LEUKOCYTE ESTERASE,URINE NEGATIVE (Negative); NITRITE,URINE NEGATIVE (Negative); OCCULT BLOOD,URINE 2+ (Negative); PH,URINE 5.5 (5.0-8.0); PROTEIN,URINE 2+ (Negative); UROBILINOGEN,URINE 0.2 (0.2-1.0)
[2024-07-15] MEDS ORDERED: 50% Dextrose in Water 50 ML Syringe IVPUSH PRN (14:59)
[2024-07-15] MEDS: Sodium Chloride 0.9% 1,000 ML IV SCH (15:00)
[2024-07-15 15:01] LABS: RBC,URINE 0-5 /hpf (0-5); RENAL EPITHELIAL CELLS,URINE 0-5 /hpf (0-5); SQUAMOUS EPITHELIAL CELLS,UR NOT SEEN /hpf (0-5); WBC,URINE 0-5 /hpf (0-5)
[2024-07-15 15:02] LABS: BACTERIA,URINE MODERATE /hpf (FEW); COARSE GRANULAR CASTS,URINE 0-5 /hpf (0-5); FINE GRANULAR CASTS,URINE 0-5 /lpf (0-5); HYALINE CASTS,URINE 0-5 /lpf (0-5); MUCUS,URINE RARE /hpf (FEW)
[2024-07-15] MEDS: Albuterol/Ipratropium 3.0-0.5 MG/3 ML Neb Soln NEB SCH (15:06)
[2024-07-15] MEDS: Oseltamivir 30 MG Cap PO SCH (16:17)
[2024-07-15] MEDS: Heparin Sodium 5,000 Units/ML Vial SUBCUT SCH (16:17)
[2024-07-15] MEDS ORDERED: QUEtiapine 25 MG Tab PO SCH (18:00)
[2024-07-15] MEDS: Insulin Lispro 100 Unit/ML 3 ML KwikPen SUBCUT SCH (18:49)
[2024-07-15] MEDS: Doxycycline 100 MG in Sodium Chloride 0.9% 100 ML IV SCH (21:51)
[2024-07-16 05:51] LABS: BASOPHILS PERCENT AUTO 0.1 % (0.0-1.0); HEMATOCRIT 43.1 % (42.0-52.0); IMMATURE GRAN ABSOLUTE AUTO 0.02 K/mm3 (0.00-0.05); IMMATURE GRAN PERCENT AUTO 0.2 % (0.0-0.4); LYMPHOCYTES ABSOLUTE AUTO 0.8 K/mm3 (1.0-4.8); LYMPHOCYTES PERCENT AUTO 8.5 % (24.0-44.0); MEAN CORPUSCULAR HEMOGLOBIN 31.2 pg (28.0-32.0); MEAN CORPUSCULAR HGB CONC 34.6 g/dl (32.0-36.0); MEAN CORPUSCULAR VOLUME 90.4 fl (83.0-99.0); MEAN PLATELET VOLUME 10.3 fl (9.4-12.4); MONOCYTES ABSOLUTE AUTO 0.4 K/mm3 (0.0-0.8); MONOCYTES PERCENT AUTO 4.3 % (0.0-8.0); NEUTROPHILS ABSOLUTE AUTO 8.4 K/mm3 (1.8-7.7); NEUTROPHILS PERCENT AUTO 86.9 % (41.0-71.0); PLATELET COUNT,PLT 154 K/mm3 (150-400); RED BLOOD CELL COUNT 4.77 M/mm3 (4.52-5.90); WHITE BLOOD CELL COUNT,WBC 9.63 K/mm3 (3.9-11.3)
[2024-07-16 05:52] LABS: HEMOGLOBIN 14.9 gm/dl (14.0-18.0)
[2024-07-16 06:11] LABS: A/G RATIO 0.6 (1-2); ALANINE AMINOTRANSFERASE,ALT 47 U/L (16-63); ALBUMIN 2.4 g/dl (3.4-5.0); ALKALINE PHOSPHATASE 45 U/L (46-116); ASPARTATE AMNIOTRANSFERASE,AST 43 U/L (15-37); BILIRUBIN TOTAL 0.5 mg/dL (0.2-1.0); BLOOD UREA NITROGEN,BUN 52 mg/dL (7-18); BUN/CREATININE RATIO 28.9 (14-18); CALCIUM 8.7 mg/dL (8.5-10.1); CHLORIDE,CL 103 mEq/L (98-107); CREATININE 1.8 mg/dL (0.7-1.3); EST CRCL DRUG DOSING (CG) 30.61 mL/min; ESTIMATED GFR 37 mL/min (>60); GLUCOSE RANDOM 156 mg/dL (70-99); POTASSIUM,K 3.3 mEq/L (3.5-5.1); PROTEIN TOTAL,TP 6.6 g/dl (6.4-8.2); SODIUM,NA 139 mEq/L (136-145)
[2024-07-16 06:20] LABS: ANION GAP 19.3 (5-15); C-REACTIVE PROTEIN > 25.00 mg/dL (<0.30); CARBON DIOXIDE,CO2 20 mEq/L (21-32)
[2024-07-16] MEDS: Potassium Chloride 20 MEQ Tab.ER PO ONE (08:29)
[2024-07-16] MEDS: Metoprolol Succinate 50 MG Tab.ER PO SCH (08:30)
[2024-07-16] MEDS ORDERED: Enoxaparin 30 MG/0.3 ML Syringe SUBCUT SCH (09:00)
[2024-07-16] MEDS: cefTRIAXone 1 GM Vial IVPUSH SCH (11:47)
[2024-07-16] MEDS: Allopurinol 100 MG Tab PO SCH (20:24)
[2024-07-16] MEDS: Oseltamivir 30 MG Cap PO SCH (20:25)
[2024-07-16] MEDS: Rosuvastatin 10 MG Tab PO SCH (20:25)
[2024-07-16] MEDS: Acetaminophen 325 MG Tab PO PRN (21:42)
[2024-07-16] MEDS: Melatonin 3 MG Tab PO PRN (21:42)
[2024-07-17 05:33] LABS: A/G RATIO 0.6 (1-2); ALBUMIN 2.2 g/dl (3.4-5.0); ANION GAP 14.5 (5-15); BILIRUBIN TOTAL 0.4 mg/dL (0.2-1.0); C-REACTIVE PROTEIN 13.7 mg/dL (<0.30); CALCIUM 8.6 mg/dL (8.5-10.1); CREATININE 1.2 mg/dL (0.7-1.3); EST CRCL DRUG DOSING (CG) 45.92 mL/min; POTASSIUM,K 3.5 mEq/L (3.5-5.1); PROTEIN TOTAL,TP 6.1 g/dl (6.4-8.2)
[2024-07-17 07:38] LABS: RED BLOOD CELL COUNT 4.56 M/mm3 (4.52-5.90); WHITE BLOOD CELL COUNT,WBC 9.74 K/mm3 (3.9-11.3)
[2024-07-17 07:40] LABS: BASOPHILS PERCENT AUTO 0.1 % (0.0-1.0); EOSINOPHILS PERCENT AUTO 0.1 % (0.0-6.0); HEMATOCRIT 41.6 % (42.0-52.0); HEMOGLOBIN 14.1 gm/dl (14.0-18.0); IMMATURE GRAN ABSOLUTE AUTO 0.03 K/mm3 (0.00-0.05); IMMATURE GRAN PERCENT AUTO 0.3 % (0.0-0.4); LYMPHOCYTES ABSOLUTE AUTO 1.6 K/mm3 (1.0-4.8); LYMPHOCYTES PERCENT AUTO 15.9 % (24.0-44.0); MEAN CORPUSCULAR HEMOGLOBIN 30.9 pg (28.0-32.0); MEAN CORPUSCULAR HGB CONC 33.9 g/dl (32.0-36.0); MEAN CORPUSCULAR VOLUME 91.2 fl (83.0-99.0); MEAN PLATELET VOLUME 11.4 fl (9.4-12.4); MONOCYTES ABSOLUTE AUTO 0.5 K/mm3 (0.0-0.8); MONOCYTES PERCENT AUTO 4.8 % (0.0-8.0); NEUTROPHILS ABSOLUTE AUTO 7.7 K/mm3 (1.8-7.7); NEUTROPHILS PERCENT AUTO 78.8 % (41.0-71.0); PLATELET COUNT,PLT 160 K/mm3 (150-400)
[2024-07-17 08:01] LABS: SLIDE REVIEW ABNORMAL SMEAR
[2024-07-17] MEDS: predniSONE 20 MG Tab PO SCH (08:12)
[2024-07-17 08:26] VITALS: BP 113/74; PULSE 78
== END 2024-07-17 10:25 | disposition home or self-care (01) | DRG 871 ==
LOC: JD.ED 10:22 → JD.MS 13:20
PROVIDERS: ADMIT Family Medicine; ATTEND Family Medicine
DX: J10.00 Influenza due to other identified influenza virus with unspecified type of pneumonia (principal); I10 Essential (primary) hypertension; E11.9 Type 2 diabetes mellitus without complications; A41.9 Sepsis, unspecified organism; J18.9 Pneumonia, unspecified organism; J96.01 Acute respiratory failure with hypoxia; R65.21 Severe sepsis with septic shock; Z79.82 Long term (current) use of aspirin; N17.9 Acute kidney failure, unspecified; E87.1 Hypo-osmolality and hyponatremia; J44.1 Chronic obstructive pulmonary disease with (acute) exacerbation; I25.10 Atherosclerotic heart disease of native coronary artery without angina pectoris; J30.9 Allergic rhinitis, unspecified; H26.9 Unspecified cataract; I13.10 Hypertensive heart and chronic kidney disease without heart failure, with stage 1 through stage 4 chronic kidney disease, or unspecified chronic kidney disease; J32.9 Chronic sinusitis, unspecified; E78.00 Pure hypercholesterolemia, unspecified; K21.9 Gastro-esophageal reflux disease without esophagitis; N40.0 Benign prostatic hyperplasia without lower urinary tract symptoms; M54.9 Dorsalgia, unspecified; G89.29 Other chronic pain; N18.9 Chronic kidney disease, unspecified; M19.90 Unspecified osteoarthritis, unspecified site; E86.0 Dehydration; J10.1 Influenza due to other identified influenza virus with other respiratory manifestations; E87.6 Hypokalemia; E11.65 Type 2 diabetes mellitus with hyperglycemia; Z90.49 Acquired absence of other specified parts of digestive tract; Z98.890 Other specified postprocedural states; Z72.0 Tobacco use; Z85.46 Personal history of malignant neoplasm of prostate; Z79.899 Other long term (current) drug therapy
CPT/HCPCS: 36415; 71045; 80053; 83605; 83880; 84484; 85025; 85610; 85730; 86140; 87040 ×2; 87428; 93005; 96360; 96361; 99285; J7030; 81001; 82947; 83735; 93010; 94640; 94760; 94761; 99284; A9270-GY; J0696; J1644; J1815; J2919; J3490; J7512; J7620-GY